=== PATIENT | male | born 1960 | race Asian ===

== ENCOUNTER 2018-12-11 14:50 | Inpatient (IN) | payer BC ==
[~2018-12-11] VITALS: Ht 175.3 cm; Wt 55.8 kg
[2018-12-11] VITALS (12 sets, daily range): BP systolic 73–133
--- NOTE | 2018-12-11 14:50 | NUR ---
patient arrived via [facility] transport. unable to obtain blood pressure. MD Quick at bedside.
--- NOTE | 2018-12-11 14:50 | NUR ---
Patient to ER bed 02 to gown for evaluation. Side rails up.
--- NOTE | 2018-12-11 14:53 | NUR ---
# 18 gauge angiocath placed to left forearm. Use of asceptic technique. Opsite placed over site. Blood return noted. Blood for lab drawn from site. Flushed with 10 cc of normal saline. No evidence of infiltration noted.
--- NOTE | 2018-12-11 14:53 | NUR ---
unable to obtain blood pressure.
--- NOTE | 2018-12-11 14:55 | NUR ---
MD Quick evaluating for ET placement.
--- NOTE | 2018-12-11 14:55 | NUR ---
Medicated per MD orders. IVF infusing with no s/s of infiltration at this time. Will cont to monitor
--- NOTE | 2018-12-11 14:56 | NUR ---
Etomidate 15mg given-[id number]
--- NOTE | 2018-12-11 14:56 | NUR ---
Bag valve masked applied and implamented by RT.
--- NOTE | 2018-12-11 14:58 | NUR ---
7 1/2 ET tube placement at 24
--- NOTE | 2018-12-11 15:00 | NUR ---
Xray at bedside
[2018-12-11] MEDS ORDERED: NOREPINEPHRINE 4 MG/4 ML VIAL IV ONE ×2 (15:09→18:11)
[2018-12-11] MEDS ORDERED: NS 1000 ML IV.SOLN IV ONE (15:15)
[2018-12-11] MEDS ORDERED: NOREPINEPHRINE BITARTRATE 4 MG in D5W 250 ML IV ONE (15:15)
--- NOTE | 2018-12-11 15:24 | NUR ---
RECEIVED REPORT FROM [facility] NURSESENAIT. PATIENT IN ER BED 2.
[2018-12-11 15:28] LABS: CALCIUM 7.2 mg/dL (8.4-11.0); CREATININE 1.62 mg/dL (0.55-1.30); POTASSIUM 3.4 mmol/L (3.5-5.1)
--- NOTE | 2018-12-11 15:30 | NUR ---
PATIENT RESTING IN ER BED 2. PATIENT HAS EYES OPEN, UNABLE TO BLINK. ABLE TO LIFT UP LEFT ARM SPONTANEOUSLY. PATIENT UNABLE TO FOLLOW COMMANDS, UNABLE TO RESPOND TO VERBAL COMMANDS. VENT SETTINGS CHECKED AT BEDSIDE. NOTED ET TUBE IN PLACE. NOTED IV SITES, NO REDNESS/ACTIVE BLEEDING. PATIENT ON MONITOR. BED AT LOWEST POSITION.
[2018-12-11 15:32] LABS: INR 1.5 (0.80-1.20); PROTHROMBIN TIME 15.5 SECS (9.5-12.5)
[2018-12-11 15:33] LABS: ALBUMIN 1.8 g/dL (3.4-4.8); TOTAL BILIRUBIN 0.8 mg/dL (0.0-1.0)
--- NOTE | 2018-12-11 15:35 | NUR ---
# 16 FR Medina catheter with use of sterile technique. Immediate return of 100 cc cloudy yellow urine noted. Bedside drainage bag placed below level of bladder. Urine sample collected and sent to lab. Pt tolerated procedure well. Patient unable to toilet self. Urine needed for UA, and strict I & O may be needed.
[2018-12-11 15:50] LABS: WHITE BLOOD COUNT (AUTO) 1.6 K/uL (4.8-10.8)
[2018-12-11 15:51] LABS: RED BLOOD CELL COUNT(AUTO) 1.78 MIL/uL (4.2-6.2)
[2018-12-11 15:52] LABS: HEMATOCRIT 16.4 % (36-54); MEAN CORPUSCULAR HEMOGLOBIN 34 pg (27-31); MEAN CORPUSCULAR HGB CONC 37 % (32-36); MEAN CORPUSCULAR VOLUME 92 fL (79.0-98.0); RED CELL DISTRIBUTION WIDTH 20.6 % (9.0-15.0)
[2018-12-11 15:53] LABS: PLATELET COUNT (AUTO) 8 K/uL (130-430)
[2018-12-11] MEDS ORDERED: LORazepam 2 MG/ML VIAL IVP ONE (16:00)
[2018-12-11 16:01] LABS: BILIRUBIN,URINE NEGATIVE (NEGATIVE); BLOOD, URINE 3+ (NEGATIVE); CLARITY/URINE CLOUDY (CLEAR); COLOR,URINE YELLOW (YELLOW); GLUCOSE,URINE NEGATIVE (NEGATIVE); KETONES,URINE NEGATIVE (NEGATIVE); LEUKOCYTE ESTERASE ,URINE NEGATIVE (NEGATIVE); NITRITE, URINE NEGATIVE (NEGATIVE); PROTEIN URINE 2+ (NEGATIVE); UROBILINOGEN,URINE 0.2 (0.2-1.0)
[2018-12-11] MEDS ORDERED: LORazepam 2 MG/ML VIAL (FOR ER USE) ONE (16:03)
--- NOTE | 2018-12-11 16:05 | NUR ---
REPORTED CRITICAL ABG RESULTS TO MD TEJEDA. PER MD DECREASED FIO2 TO 30% AT THIS TIME. MYLA PERSAUD MADE AWARE.
--- NOTE | 2018-12-11 16:10 | NUR ---
PER ER MD TEJEDA ADVANCED ETT 1.5CM. ETT TAPED AT 25.5CM LIP LINE. MYLA PERSAUD MADE AWARE.
[2018-12-11 16:11] LABS: BACTERIA,URINE MANY /HPF (None Seen)
[2018-12-11] MEDS ORDERED: cefTRIAXone 1 GM in D5W 50 ML IV ONE (16:15)
[2018-12-11] MEDS ORDERED: cefTRIAXone 1 GM VIAL ONE (16:28)
--- NOTE | 2018-12-11 17:21 | NUR ---
Consent signed per Dr. Quick agreeing to administration of blood. Blood has been type and crossmatched. Blood sent from blood bank. Information on unit of blood checked against patient wristband at bedside by two nurses. All information matches. Patient or responsible green party informed of potential complications associated with blood transfusion. Informed of possible transfusion reaction symptoms. Aware of need to notify nurse at once of itching, shortness of breath, flushing, feeling of impending doom, or other symptoms not previously present. Vital signs taken within 5 minutes prior to initiation of transfusion. RN will remain with patient for first 15 minutes of transfusion at which time vital signs will be re-assessed.temp -98.2, pulse-29, respirations 27, BP-108/74.
--- NOTE | 2018-12-11 17:30 | NUR ---
1ST BLOOD FINISHED: 1ST BLOOD ADMINISTRATION FINISHED. NO SIGNS OF REACTIONS NOTED. TEMP-99.0, PULSE-134, REPIRATIONS 27, AND BLOOD PRESSURE 45/37.
--- NOTE | 2018-12-11 17:37 | NUR ---
Consent signed per Dr. Quick agreeing to administration of blood. Blood has been type and crossmatched. Blood sent from blood bank. Information on unit of blood checked against patient wristband at bedside by two nurses. All information matches. Patient or responsible republican informed of potential complications associated with blood transfusion. Informed of possible transfusion reaction symptoms. Aware of need to notify nurse at once of itching, shortness of breath, flushing, feeling of impending doom, or other symptoms not previously present. Vital signs taken within 5 minutes prior to initiation of transfusion. RN will remain with patient for first 15 minutes of transfusion at which time vital signs will be re-assessed. Temp - 100.1, Pulse-137, Resp-32, BP-45/27
--- NOTE | 2018-12-11 17:44 | NUR ---
2ND BLOOD FINISHED: 2ST BLOOD ADMINISTRATION FINISHED. NO SIGNS OF REACTIONS NOTED. TEMP-99.1, PULSE-137, REPIRATIONS 27, AND BLOOD PRESSURE 62/32.
[2018-12-11] MEDS ORDERED: DOPamine PREMIX 250 ML IV ONE ×2 (17:50→18:00)
--- NOTE | 2018-12-11 17:54 | NUR ---
3rd Blood Consent signed per Sing agreeing to administration of blood. Blood has been type and crossmatched. Blood sent from blood bank. Information on unit of blood checked against patient wristband at bedside by two nurses. All information matches. Patient or responsible alliance party informed of potential complications associated with blood transfusion. Informed of possible transfusion reaction symptoms. Aware of need to notify nurse at once of itching, shortness of breath, flushing, feeling of impending doom, or other symptoms not previously present. Vital signs taken within 5 minutes prior to initiation of transfusion. RN will remain with patient for first 15 minutes of transfusion at which time vital signs will be re-assessed. temp=99.1, pulse-138, Respirations -35, BP-73/47
[2018-12-11] MEDS ORDERED: ALBUMIN HUMAN 25% 50 ML IV ONE ×4 (17:57→18:09)
[2018-12-11 18:08] LABS: ATYPICAL LYMPHOCYTES % 13 % (0-0); BAND % (MANUAL) 2 % (0-6); BASOPHILS % (MANUAL) 0 % (0-2); EOSINOPHILS % (MANUAL) 0 % (0-7); LYMPHOCYTES % (MANUAL) 79 % (20-46); MONOCYTES % (MANUAL) 4 % (0-11)
--- NOTE | 2018-12-11 18:10 | NUR ---
3RD BLOOD FINISHED: 3ST BLOOD ADMINISTRATION FINISHED. NO SIGNS OF REACTIONS NOTED. TEMP-99.5, PULSE-142, REPIRATIONS 36, AND BLOOD PRESSURE 148/86.
[2018-12-11] MEDS ORDERED: ETOMIDATE 20 MG/ 10 ML VIAL (AMIDATE) IVP ONE (18:34)
--- NOTE | 2018-12-11 18:40 | NUR ---
TRANSFERRED TO ICU: TRANSFERRED PATIENT TO ICU WITH RT, RN, AND MEAT DEPARTMENT MANAGER. PATIENT ON MONITOR. NO SIGNS OF DISTRESS.
--- NOTE | 2018-12-11 18:48 | NUR ---
RN OPENING NOTE PT TRANSPORTED VIA GURNEY FROM ED TO ICU-4. SBAR REPORT RECEIVED AT BEDSIDE FROM ENDORSING RN. SEE VS FLOW SHEET.
--- NOTE | 2018-12-11 18:50 | NUR ---
DR. TANNER AT BEDSIDE
--- NOTE | 2018-12-11 18:52 | NUR ---
DR. RIBERA AT BEDSIDE
[2018-12-11] MEDS ORDERED: NOREPINEPHRINE BITARTRATE 4 MG in D5W 246 ML IV PRN (19:00)
[2018-12-11] MEDS ORDERED: LevALBUTEROL HCL 1.25 MG/0.5 ML *CONC.* VIAL.NEB (XOPENEX CONC.) INH PRN (19:00)
--- NOTE | 2018-12-11 19:09 | NUR ---
Consults paged: Dr. Saldana and Dr. Lawanda liu, spoke with exchange.
[2018-12-11] MEDS ORDERED: CEFEPIME 2 GM in D5W 100 ML IV ONE (19:15)
[2018-12-11] MEDS ORDERED: ACETAMINOPHEN 650 MG/20.3 ML UDC NG PRN (19:15)
--- NOTE | 2018-12-11 19:16 | NUR ---
ENDORSEMENT SBAR REPORT ENDORSED TO RECEIVING RN AT BEDSIDE. SEE VS FLOW SHEET.
[2018-12-11] MEDS: LevALBUTEROL HCL 1.25 MG/0.5 ML *CONC.* VIAL.NEB (XOPENEX CONC.) INH SCH (19:22)
--- NOTE | 2018-12-11 19:25 | NUR ---
PM Shift Assessment The patient is intubated on mechanical ventilation. He is A&O x1, opens eyes to his name and is responsive to pain. The patient is cachectic. Dopamine is running at 8mcg and Levophed at 30mcg. Bilateral 1+ edema is present on the lateral foot and ankle. Anterior lung sounds are diminished bilaterally. He has a PICC line in the right upper arm, left AC 18 G and right forearm 18 G, no signs of infiltration noted. There is a pleurex drain in the right lower quadrant of the abdomen. Temporal temperature is 100.3. Bilateral radial and dorsalis pedis pulses are 2+. The head of bed is at 30 degrees. Side rails are up and the bed is in the lowest position, call light within reach.
--- NOTE | 2018-12-11 19:38 | NUR ---
DR ERIC Webber notified regarding Pt's status. 1942 Dr Webber returned call, notified regarding Pt's status, orders received. Continue with dopamine and levophed drips for blood pressure support. He will be in to see the patient.
[2018-12-11] MEDS ORDERED: FILGRASTIM 480 MCG/VIAL SUBCUT ONE (19:45)
[2018-12-11] MEDS: KCL 20 mEq in D5NS 1000 mL 1,000 ML IV SCH (19:48)
[2018-12-11] MEDS ORDERED: DOPamine PREMIX 250 ML IV PRN (20:00)
[2018-12-11] MEDS ORDERED: VANCOMYCIN HCL 1,000 MG in NS 250 ML IV SCH (20:00)
[2018-12-11] MEDS: NOREPINEPHRINE BITARTRATE 8 MG in NS 242 ML IV PRN (20:06)
--- NOTE | 2018-12-11 21:25 | NUR ---
Dr. Webber at bedside examining patient.
--- NOTE | 2018-12-11 21:30 | NUR ---
Pts family at bedside. Pts son made aware of pts current condition. Will continue to update son.
[2018-12-11] MEDS ORDERED: ALBUMIN HUMAN 25% 100 ML IV ONE (22:00)
[2018-12-11] MEDS ORDERED: ALBUMIN HUMAN 5% 500 ML IV ONE (22:00)
[2018-12-12] VITALS (27 sets, daily range): BP systolic 53–129
[2018-12-12] MEDS: KCL 20 mEq in D5NS 1000 mL 1,000 ML IV SCH ×3 (00:40→09:17)
[2018-12-12] MEDS: NOREPINEPHRINE BITARTRATE 8 MG in NS 242 ML IV PRN ×4 (00:41→15:03)
[2018-12-12] MEDS: LevALBUTEROL HCL 1.25 MG/0.5 ML *CONC.* VIAL.NEB (XOPENEX CONC.) INH SCH ×3 (00:48→13:24)
[2018-12-12 06:21] LABS: HEMATOCRIT 32.3 % (36-54); HEMOGLOBIN 10.7 g/dL (14.0-18.0); LYMPHOCYTES # (AUTO) 1.2 K/uL (1.0-5.5); LYMPHOCYTES % (AUTO) 98.1 % (20.5-51.5); MEAN CORPUSCULAR HEMOGLOBIN 31 pg (27-31); MEAN CORPUSCULAR HGB CONC 33 % (32-36); MEAN CORPUSCULAR VOLUME 93 fL (79.0-98.0); MONOCYTES % (AUTO) 1.3 % (1.7-9.3); NEUTROPHILS % (AUTO) 0.6 % (40.0-70.0); RED BLOOD CELL COUNT(AUTO) 3.48 MIL/uL (4.2-6.2); RED CELL DISTRIBUTION WIDTH 16.9 % (9.0-15.0)
[2018-12-12 06:28] LABS: CREATININE 1.61 mg/dL (0.55-1.30); POTASSIUM 4.1 mmol/L (3.5-5.1)
[2018-12-12 06:29] LABS: PLATELET COUNT (AUTO) 14 K/uL (130-430); WHITE BLOOD COUNT (AUTO) 1.2 K/uL (4.8-10.8)
[2018-12-12 06:32] LABS: PHOSPHORUS 5.8 mg/dL (2.7-4.5)
[2018-12-12 06:35] LABS: CALCIUM 6.1 mg/dL (8.4-11.0)
[2018-12-12 06:41] LABS: PROTHROMBIN TIME 20.2 SECS (9.5-12.5)
--- NOTE | 2018-12-12 07:08 | NUR ---
ENDORSEMENT Pt care endorsed to MYLA Bautista at bedside using nursing SBAR.
--- NOTE | 2018-12-12 07:15 | NUR ---
Opening Note Received bedside report from Ruth LANZA for continuation of care.
[2018-12-12] MEDS ORDERED: CEFEPIME 2 GM in D5W 100 ML IV SCH (09:00)
[2018-12-12] MEDS ORDERED: MORPHINE 4 MG/ML INJ. SYRINGE IVP PRN (09:30)
[2018-12-12] MEDS ORDERED: LORazepam 2 MG/ML VIAL IVP PRN (09:30)
[2018-12-12] MEDS ORDERED: SODIUM BICARBONATE 8.4% JECT 50 MEQ/50 ML SYRINGE IVP ONE (10:00)
--- NOTE | 2018-12-12 10:26 | NUR ---
Nutrition Update Hernandez Scale 12 noted. Pt admitted for septic shock. Diet: N/A BMI: 18.2 kg/m2 RD to follow per nutrition care standards.
--- NOTE | 2018-12-12 10:30 | NUR ---
Dr. Hutchins at bedside examining patient. New orders received.
[2018-12-12] MEDS ORDERED: NOREPINEPHRINE 4 MG/4 ML VIAL IV ONE (10:35)
[2018-12-12] MEDS: NACL 0.9% 1,000 ML IV SCH ×3 (10:58→17:13)
[2018-12-12] MEDS ORDERED: LEVOFLOXACIN 500 MG/D5W 100 ML IV ONE (11:00)
[2018-12-12] MEDS ORDERED: VASOPRESSIN 200 UNITS in D5W 90 ML IV PRN (11:00)
[2018-12-12] MEDS ORDERED: MICAFUNGIN SODIUM 100 MG in NS 100 ML IV SCH (11:00)
[2018-12-12] MEDS ORDERED: MEROPENEM 500 MG in NS 50 ML IV ONE (11:15)
--- NOTE | 2018-12-12 11:30 | NUR ---
Dr. Saldana at bedside examining patient. New orders received.
--- NOTE | 2018-12-12 14:00 | NUR ---
Wound care performed and bed linens changed. No signs or symptoms of distress noted. Patient tolerated well with minimal discomfort.
[2018-12-12] MEDS: PHENYLEPHRINE HCL 30 MG in NS 247 ML IV PRN ×2 (14:07→17:42)
--- NOTE | 2018-12-12 15:04 | NUR ---
Dietitian Recommendations * Recommend EN support via NGT if/when medically appropriate * Consider Vital AF TF formula LP, RD Please refer to Nutrition Assessment for details.
[2018-12-12] MEDS ORDERED: FILGRASTIM 480 MCG/VIAL SUBCUT SCH (17:00)
[2018-12-12] MEDS ORDERED: NOREPINEPHRINE BITARTRATE 16 MG in NS 234 ML IV PRN (18:01)
--- NOTE | 2018-12-12 19:15 | NUR ---
Endorsement Endorsed bedside report to Ruth LANZA using SBAR approach for continuation of care.
--- NOTE | 2018-12-12 19:35 | NUR ---
Entered patients room after receiving report with dayshift RN. Patients HR became PEA with a widening QRS and then became flat lined. Dr. Feliciano was at bedside at the time the patient became pulseless and pronounced the patients at 1930.
--- NOTE | 2018-12-12 19:45 | NUR ---
[facility] Spoke to Betty at [facility], Betty stated this patient is not in position for organ donation. Referral # [id number]
--- NOTE | 2018-12-12 19:50 | NUR ---
COMPREHENSIVE ADVISOR Spoke to REBA, REBA stated this patient is not a customer account representative's case.
--- NOTE | 2018-12-12 20:24 | NUR ---
Placed call for Dr. Saldana and Dr. Webber to notify of patients .
--- NOTE | 2018-12-12 20:29 | NUR ---
Placed call for Dr. Lutz to notify of patients . Spoke to Toni.
[2018-12-12] MEDS ORDERED: ACYCLOVIR IV 500 MG in D5W 100 ML IV SCH (21:00)
[2018-12-12] MEDS ORDERED: MEROPENEM 500 MG in NS 50 ML IV SCH (22:00)
--- NOTE | 2018-12-12 23:30 | NUR ---
ISAURA Headley @ [facility] notified regarding Pt's per family request. ETA: between 0030 & 0100.
--- NOTE | 2018-12-13 00:35 | NUR ---
FAMILY Family @ bedside.
--- NOTE | 2018-12-13 01:24 | NUR ---
MORTUARY Rep from [facility] here and left with pt. No belongings @ bedside.
[2018-12-13] MEDS ORDERED: LEVOFLOXACIN 250 MG/D5W 50 ML IV SCH (11:00)
== END 2018-12-12 19:30 | disposition expired | DRG 871 ==
LOC: SED 14:50 → SIC 18:06
PROVIDERS: ADMIT Family Medicine; ATTEND Family Medicine
PROC: 30233K1 Transfusion of Nonautologous Frozen Plasma into Peripheral Vein, Percutaneous Approach (ICD-10-PCS; principal; 2018-12-11)
PROC: 30233N1 Transfusion of Nonautologous Red Blood Cells into Peripheral Vein, Percutaneous Approach (ICD-10-PCS; 2018-12-11)
PROC: 30233R1 Transfusion of Nonautologous Platelets into Peripheral Vein, Percutaneous Approach (ICD-10-PCS; 2018-12-11)
PROC: 0BH17EZ Insertion of Endotracheal Airway into Trachea, Via Natural or Artificial Opening (ICD-10-PCS; 2018-12-11)
PROC: 5A1945Z Respiratory Ventilation, 24-96 Consecutive Hours (ICD-10-PCS; 2018-12-11)
DX: A41.50 Gram-negative sepsis, unspecified (principal); D61.810 Antineoplastic chemotherapy induced pancytopenia; D65 Disseminated intravascular coagulation [defibrination syndrome]; E43 Unspecified severe protein-calorie malnutrition; J96.01 Acute respiratory failure with hypoxia; R65.21 Severe sepsis with septic shock; E87.2 Acidosis; N17.9 Acute kidney failure, unspecified; N39.0 Urinary tract infection, site not specified; C85.90 Non-Hodgkin lymphoma, unspecified, unspecified site; D61.818 Other pancytopenia; Z68.1 Body mass index [BMI] 19.9 or less, adult; E86.0 Dehydration; I11.0 Hypertensive heart disease with heart failure; I25.10 Atherosclerotic heart disease of native coronary artery without angina pectoris; N40.0 Benign prostatic hyperplasia without lower urinary tract symptoms; I50.9 Heart failure, unspecified; Z66 Do not resuscitate; T45.1X5A Adverse effect of antineoplastic and immunosuppressive drugs, initial encounter; Z87.891 Personal history of nicotine dependence; Y92.89 Other specified places as the place of occurrence of the external cause; Z92.21 Personal history of antineoplastic chemotherapy
CPT/HCPCS: 36415; 36600; 70450-TC; 71045; 80048; 80053; 81000-TC; 82803-TC; 83605; 83735-TC; 84100-TC; 84484; 85007; 85025; 85027; 85384-TC; 85610-TC; 85730-TC; 86886; 86900; 86901; 86920; 87040-TC; 87070-TC; 87081; 87086; 87186-TC; 87205-TC; 93005; 94002; 94003; 94640; 96365; 96375; 99291; J0133; J0692; J0696; J1265; J1442; J1956; J2060; J2185; J2248; J2370; J3370; J3490; J7030; J7050; J7060; J7612; P9021; P9034; P9041; P9046; P9059